=== PATIENT | female | born 1995 | race Two or more races ===

== ENCOUNTER 2023-07-26 16:54 | Emergency (ER) | payer OTHER ==
[~2023-07-26] VITALS: Ht 157.5 cm; Wt 95.7 kg
[2023-07-26] MEDS ORDERED: ZYRTEC10 M3 PO (17:28)
[2023-07-26] MEDS ORDERED: PRENATA CHEWAB1 EACH PO (17:28)
[2023-07-26] MEDS ORDERED: FAMOTIDINE/PF 20 MG in 0.9 % SODIUM CHLORIDE 8 ML IV PUSH STA (17:40)
[2023-07-26] MEDS ORDERED: ONDANSETRON HCL 2 MG/ML VIAL IV ONE (17:45)
[2023-07-26] MEDS ORDERED: 0.9 % SODIUM CHLORIDE 1,000 ML IV SCH (17:45)
[2023-07-26 18:12] LABS: HEMATOCRIT 34.3 % (36.0-45.00); HEMOGLOBIN 11.5 g/dL (12.0-15.00); MEAN CELL VOLUME 79.8 fL (80.00-100.00); MEAN CORPUSCULAR HEMOGLOBIN 26.7 pg (27.00-32.0); MEAN CORPUSCULAR HGB CONC 33.4 g/dl (32.0-36.0); PLATELET COUNT 247 K/uL (150-450); RED CELL DISTRIBUTION WIDTH 15.7 % (11.5-14.5)
[2023-07-26 19:01] LABS: ALBUMIN 3.1 gm/dL (3.4-5.0); BILIRUBIN TOTAL 0.17 mg/dL (0.3-1.2); CALCIUM 8.9 mg/dL (8.5-10.1); CREATININE SERUM 0.72 mg/dL (0.55-1.02); GFR 97.17; GLOBULINA 4.1 G/DL (2.4-3.5); POTASSIUM 3.94 mEq/L (3.5-5.1); TOTAL PROTEIN 7.2 gm/dL (6.4-8.2)
[2023-07-26 20:02] LABS: PH,URINE 5.5 (5.0-8.0); URINE APPEARANCE Clear; URINE BILIRRUBIN Negative (NEGATIVE); URINE BLOOD Small; URINE COLOR Yellow; URINE GLUCOSE Negative (NEGATIVE); URINE LEUKOCYTE Negative; URINE NITRATE Negative; URINE PROTEIN Negative (NEGATIVE); URINE UROBILINOGEN 0.2 E.U./dl
[2023-07-26 20:05] LABS: URINE BACTERIA 61.7 uL (0.0-1933); URINE EPITHELIAL CELLS 5.2 uL (0.0-38.8); URINE RBC 14.3 uL (0.0-20.8); URINE WBC 2.7 uL (0.0-23.2)
== END 2023-07-26 20:30 | disposition home or self-care (01) ==
LOC: ER 16:55
PROVIDERS: General Practice
DX: O20.8 Other hemorrhage in early pregnancy (principal); Z3A.11 11 weeks gestation of pregnancy

== ENCOUNTER → 2023-10-15 | Outpatient (CLI) | payer OTHER ==
[~2023-10-15] MED LIST: PRENATA CHEWAB1 EACH PO; ZYRTEC10 M3 PO
== END | disposition home or self-care (01) ==
LOC: PRENATAL 07:58
PROVIDERS: ATTEND Obstetrics & Gynecology Maternal & Fetal Medicine
DX: O35.9XX0 Maternal care for (suspected) fetal abnormality and damage, unspecified, not applicable or unspecified (principal); O35.3XX0 Maternal care for (suspected) damage to fetus from viral disease in mother, not applicable or unspecified; O44.02 Complete placenta previa NOS or without hemorrhage, second trimester; O99.212 Obesity complicating pregnancy, second trimester; O36.0920 Maternal care for other rhesus isoimmunization, second trimester, not applicable or unspecified; O99.342 Other mental disorders complicating pregnancy, second trimester; F99 Mental disorder, not otherwise specified; Z3A.22 22 weeks gestation of pregnancy

== ENCOUNTER 2023-12-04 12:59 | Outpatient (CLI) | payer OTHER | END 2023-12-04 13:01 | disposition home or self-care (01) | LOC: PRENATAL 12:59 | PROVIDERS: ATTEND Obstetrics & Gynecology Maternal & Fetal Medicine | DX: O26.849 Uterine size-date discrepancy, unspecified trimester (principal); O99.210 Obesity complicating pregnancy, unspecified trimester; O36.1999 Maternal care for other isoimmunization, unspecified trimester, other fetus; O99.342 Other mental disorders complicating pregnancy, second trimester; O99.019 Anemia complicating pregnancy, unspecified trimester; Z3A.29 29 weeks gestation of pregnancy ==

== ENCOUNTER 2024-01-07 09:38 | Outpatient (CLI) | payer OTHER | END 2024-01-07 09:39 | disposition home or self-care (01) | LOC: PRENATAL 09:38 | PROVIDERS: ATTEND Obstetrics & Gynecology Maternal & Fetal Medicine | DX: O26.849 Uterine size-date discrepancy, unspecified trimester (principal); O36.8199 Decreased fetal movements, unspecified trimester, other fetus; O99.210 Obesity complicating pregnancy, unspecified trimester; O36.1999 Maternal care for other isoimmunization, unspecified trimester, other fetus; O99.343 Other mental disorders complicating pregnancy, third trimester; Z3A.34 34 weeks gestation of pregnancy ==

== ENCOUNTER 2024-01-22 12:34 | Outpatient (CLI) | payer OTHER ==
[~2024-01-22] VITALS: Ht 157.5 cm; Wt 107.0 kg
[2024-01-22 11:45] VITALS: BP 116/78
[2024-01-22] MEDS ORDERED: RINGERS SOLUTION,LACTATED 1,000 ML IV SCH (13:00)
[2024-01-22] MEDS ORDERED: ADULT LOW DOSE81 M1 PO (13:39)
[2024-01-22 13:48] LABS: HEMATOCRIT 34.1 % (36.0-45.00); HEMOGLOBIN 11.4 g/dL (12.0-15.00); MEAN CELL VOLUME 81.3 fL (80.00-100.00); MEAN CORPUSCULAR HEMOGLOBIN 27.3 pg (27.00-32.0); MEAN CORPUSCULAR HGB CONC 33.6 g/dl (32.0-36.0); PLATELET COUNT 156 K/uL (150-450); RED BLOOD COUNT 4.19 M/uL (4.00-6.00)
[2024-01-22 13:52] LABS: PH,URINE 7.5 (5.0-8.0); URINE APPEARANCE Clear; URINE BILIRRUBIN Negative (NEGATIVE); URINE BLOOD Negative; URINE COLOR Yellow; URINE GLUCOSE Negative (NEGATIVE); URINE KETONE Trace (NEGATIVE); URINE LEUKOCYTE Negative; URINE NITRATE Negative; URINE PROTEIN Negative (NEGATIVE); URINE UROBILINOGEN 0.2 E.U./dl
[2024-01-22 13:56] LABS: URINE BACTERIA 4201.9 uL (0.0-1933); URINE RBC 22.4 uL (0.0-20.8); URINE WBC 29.2 uL (0.0-23.2)
[2024-01-22 14:44] LABS: ALT/SGPT 23 U/L (12-78); AST/SGOT 20 U/L (15-37)
[2024-01-22 16:14] VITALS: BP 140/81
[2024-01-22 19:53] VITALS: BP 123/83
[2024-01-22 23:40] VITALS: BP 124/75; O2SAT 99
[2024-01-23 03:17] VITALS: BP 120/84; O2SAT 99
[2024-01-23 07:42] VITALS: BP 126/84
[2024-01-23 09:58] VITALS: BP 126/84
== END 2024-01-23 10:26 | disposition home or self-care (01) ==
LOC: OBS/DEL 12:34 → LDR 12:34 → OBS/DEL 12:57
PROVIDERS: ATTEND Obstetrics & Gynecology
DX: O26.893 Other specified pregnancy related conditions, third trimester (principal); Z3A.36 36 weeks gestation of pregnancy

== ENCOUNTER 2024-01-29 16:41 | Outpatient (CLI) | payer OTHER ==
[~2024-01-29 16:41] MED LIST changes: +ADULT LOW DOSE81 M1 PO
[2024-01-29 17:33] VITALS: BP 117/70
[2024-01-29 17:40] VITALS: BP 117/70
[2024-01-29] MEDS ORDERED: RINGERS SOLUTION,LACTATED 1,000 ML IV SCH (18:00)
[2024-01-29 18:13] LABS: HEMATOCRIT 33.4 % (36.0-45.00); HEMOGLOBIN 11.3 g/dL (12.0-15.00); MEAN CORPUSCULAR HEMOGLOBIN 27.7 pg (27.00-32.0); MEAN CORPUSCULAR HGB CONC 33.7 g/dl (32.0-36.0); PLATELET COUNT 160 K/uL (150-450); RED BLOOD COUNT 4.08 M/uL (4.00-6.00)
[2024-01-29 18:18] LABS: PH,URINE 6.5 (5.0-8.0); URINE APPEARANCE Clear; URINE BILIRRUBIN Negative (NEGATIVE); URINE BLOOD Negative; URINE COLOR Yellow; URINE GLUCOSE Negative (NEGATIVE); URINE LEUKOCYTE Negative; URINE NITRATE Negative; URINE PROTEIN Negative (NEGATIVE); URINE UROBILINOGEN 0.2 E.U./dl
[2024-01-29 18:19] LABS: URINE BACTERIA 5484.7 uL (0.0-1933); URINE EPITHELIAL CELLS 23.3 uL (0.0-38.8); URINE RBC 23.8 uL (0.0-20.8); URINE WBC 19.9 uL (0.0-23.2)
[2024-01-29 18:36] LABS: URINE KETONE 80 (NEGATIVE); URINE MUCUS SCANT
[2024-01-29 18:37] LABS: INR 1.04; PARTIAL THROMBOPLASTIN TIME 36.7 SECONDS (22.0-34.0); PROTHROMBIN TIME 11.3 SECONDS (9.0-11.5)
[2024-01-29 18:42] LABS: ALBUMIN 2.7 gm/dL (3.4-5.0); BILIRUBIN TOTAL 0.21 mg/dL (0.3-1.2); CALCIUM 8.5 mg/dL (8.5-10.1); CREATININE SERUM 0.56 mg/dL (0.55-1.02); GFR 128.9; GLOBULINA 3.2 G/DL (2.4-3.5); POTASSIUM 3.78 mEq/L (3.5-5.1); TOTAL PROTEIN 5.9 gm/dL (6.4-8.2)
[2024-01-29 20:30] VITALS: BP 117/70
== END 2024-01-29 20:57 | disposition home or self-care (01) ==
LOC: OBS/DEL 16:41
PROVIDERS: ATTEND Obstetrics & Gynecology
DX: O26.893 Other specified pregnancy related conditions, third trimester (principal); Z3A.37 37 weeks gestation of pregnancy

== ENCOUNTER 2024-02-18 05:24 | Inpatient (IN) | payer OTHER ==
[~2024-02-18] VITALS: Ht 157.5 cm; Wt 3.2 kg
[2024-02-18] MEDS ORDERED: RINGERS SOLUTION,LACTATED 1,000 ML IV SCH (05:30)
[2024-02-18 08:06] VITALS: BP 140/97
[2024-02-18 09:18] LABS: PH,URINE 6.5 (5.0-8.0); URINE APPEARANCE Clear; URINE BILIRRUBIN Negative (NEGATIVE); URINE BLOOD Negative; URINE COLOR Yellow; URINE GLUCOSE Negative (NEGATIVE); URINE KETONE Negative (NEGATIVE); URINE LEUKOCYTE Negative; URINE NITRATE Negative; URINE PROTEIN Negative (NEGATIVE); URINE UROBILINOGEN 0.2 E.U./dl
[2024-02-18 09:20] LABS: URINE BACTERIA 4359.4 uL (0.0-1933); URINE EPITHELIAL CELLS 47.1 uL (0.0-38.8); URINE RBC 9.4 uL (0.0-20.8); URINE WBC 14.6 uL (0.0-23.2)
[2024-02-18 09:29] LABS: URINE CAST 1.06 uL (0.0-1.40)
[2024-02-18] MEDS ORDERED: MISOPROSTOL 25 MCG/4 ML GEL.W.APPL VAG ONE ×3 (09:30→20:00)
[2024-02-18 09:33] LABS: HEMATOCRIT 36.5 % (36.0-45.00); HEMOGLOBIN 12.3 g/dL (12.0-15.00); MEAN CELL VOLUME 81.7 fL (80.00-100.00); MEAN CORPUSCULAR HEMOGLOBIN 27.6 pg (27.00-32.0); MEAN CORPUSCULAR HGB CONC 33.7 g/dl (32.0-36.0); PLATELET COUNT 160 K/uL (150-450); RED BLOOD COUNT 4.47 M/uL (4.00-6.00); RED CELL DISTRIBUTION WIDTH 16.8 % (11.5-14.5)
[2024-02-18 09:40] LABS: INR 1.01; PARTIAL THROMBOPLASTIN TIME 36.1 SECONDS (22.0-34.0)
[2024-02-18 10:05] LABS: ALBUMIN 2.8 gm/dL (3.4-5.0); BILIRUBIN TOTAL 0.29 mg/dL (0.3-1.2); CALCIUM 8.9 mg/dL (8.5-10.1); CREATININE SERUM 0.52 mg/dL (0.55-1.02); GFR 140.41; GLOBULINA 3.6 G/DL (2.4-3.5); POTASSIUM 4.36 mEq/L (3.5-5.1); TOTAL PROTEIN 6.4 gm/dL (6.4-8.2)
[2024-02-18 11:44] VITALS: BP 137/87
[2024-02-18 15:43] VITALS: BP 141/82
[2024-02-19] VITALS (7 sets, daily range): BP systolic 137–170; BP diastolic 65–94
[2024-02-19] MEDS ORDERED: MISOPROSTOL 25 MCG/4 ML GEL.W.APPL VAG STA (08:17)
[2024-02-19] MEDS ORDERED: OXYTOCIN 500 ML IV SCH (14:00)
[2024-02-20 00:14] VITALS: BP 140/90
[2024-02-20] MEDS ORDERED: hydrALAZINE HCL 20 MG VIAL IV STA (00:37)
[2024-02-20 04:14] VITALS: BP 144/78
[2024-02-20 08:10] VITALS: BP 148/83
[2024-02-20] MEDS ORDERED: MORPHINE SULFATE 4 MG/ML CARTRIDGE IV PRN (10:45)
[2024-02-20] MEDS ORDERED: CHLORHEXIDINE GLUCONATE 120 ML BOTTLE TP ONE (12:00)
[2024-02-20] MEDS ORDERED: ERYTHROMYCIN BASE OPHT 1GM EACH TUBE OP ONE (12:00)
[2024-02-20] MEDS ORDERED: OXYTOCIN 1,000 ML IV SCH (12:00)
[2024-02-20] MEDS ORDERED: OXYTOCIN 10 UNITS/ML VIAL IV ONE (12:00)
[2024-02-20] MEDS ORDERED: CEFAZOLIN SODIUM 2,000 MG in 0.9 % SODIUM CHLORIDE 100 ML IV ONE (12:00)
[2024-02-20] MEDS ORDERED: RINGERS SOLUTION,LACTATED 1,000 ML IV SCH (12:00)
[2024-02-20] MEDS ORDERED: MORPHINE SULFATE 4 MG/ML VIAL IV ONE ×2 (12:10→12:40)
[2024-02-20] MEDS ORDERED: SIMETHICONE 125 MG CAPSULE PO SCH (13:00)
[2024-02-20 14:06] VITALS: BP 140/79
[2024-02-20 15:09] LABS: HEMATOCRIT 31.4 % (36.0-45.00); HEMOGLOBIN 10.3 g/dL (12.0-15.00); MEAN CELL VOLUME 82.4 fL (80.00-100.00); MEAN CORPUSCULAR HEMOGLOBIN 27.1 pg (27.00-32.0); MEAN CORPUSCULAR HGB CONC 32.9 g/dl (32.0-36.0); PLATELET COUNT 141 K/uL (150-450); RED CELL DISTRIBUTION WIDTH 16.5 % (11.5-14.5)
[2024-02-20 16:00] VITALS: BP 140/85
[2024-02-20] MEDS ORDERED: DOCUSATE SODIUM 100MG CAP PO SCH (17:00)
[2024-02-20 21:48] VITALS: BP 140/80
[2024-02-21 00:56] VITALS: BP 140/84
[2024-02-21 09:00] VITALS: BP 112/84
[2024-02-21] MEDS ORDERED: IBUprofen 800 MG TABLET PO PRN (09:00)
[2024-02-22 01:35] VITALS: BP 130/84
[2024-02-22 05:41] VITALS: BP 147/95
[2024-02-22 09:44] VITALS: BP 140/75
[2024-02-22 13:00] VITALS: BP 144/93
[2024-02-22 14:08] VITALS: BP 138/85
[2024-02-23] VITALS: BP 135/74
[2024-02-23 11:00] VITALS: BP 142/88
== END 2024-02-23 11:27 | disposition home or self-care (01) | DRG 788 ==
LOC: LDR 05:24 → OB/GYN 05:24 → LDR 06:49 → OB/GYN 02-20 09:57
PROVIDERS: ADMIT Obstetrics & Gynecology; ATTEND Obstetrics & Gynecology
PROC: 3E0P7VZ Introduction of Hormone into Female Reproductive, Via Natural or Artificial Opening (ICD-10-PCS; 2024-02-18)
PROC: 4A1HXCZ Monitoring of Products of Conception, Cardiac Rate, External Approach (ICD-10-PCS; 2024-02-18)
PROC: 3E033VJ Introduction of Other Hormone into Peripheral Vein, Percutaneous Approach (ICD-10-PCS; 2024-02-20)
PROC: 10D00Z1 Extraction of Products of Conception, Low, Open Approach (ICD-10-PCS; principal; 2024-02-20 11:00)
DX: O61.0 Failed medical induction of labor (principal); O13.4 Gestational [pregnancy-induced] hypertension without significant proteinuria, complicating childbirth; Z3A.40 40 weeks gestation of pregnancy; Z37.0 Single live birth; Z20.822 Contact with and (suspected) exposure to COVID-19